=== PATIENT | female | born 1985 | race African-American/Black ===

== ENCOUNTER 2023-03-15 11:32 | Emergency (ER) | payer BC, SELFPAY ==
[2023-03-15 11:43] VITALS: BP 108/67; PULSE 66; RESP 18; TEMP 36.4; O2SAT 95; BMI 25.1
--- NOTE | 2023-03-15 12:16 | ED.GENADULT ---
HPI - General Adult General Date Seen: 03/15/23 Chief complaint: Cough Stated complaint: Cough, loss of taste/smell Time Seen by Provider: 03/15/23 11:42 Source: patient Mode of arrival: ambulatory Limitations: no limitations and altered mental status History of Present Illness HPI narrative: Patient is a 37-year-old generally healthy woman who presents for evaluation of cough and fatigue which has been present for about 4 days. She took a home COVID test which was positive. She is wondering about possible influenza and RSV as well. She does not have chest pain or shortness of breath. She says that she has a history of vaping tobacco but quit on March 08. She does smell like marijuana although she denies smoking marijuana herself. No fevers, vomiting, or other complaints. Related Data Home Medications Medication Instructions Recorded Confirmed aripiprazole 9.75 mg/1.3 mL mg IM 03/15/23 intramuscular solution Previous Rx's Medication Instructions Recorded albuterol sulfate 90 mcg/actuation 2 puff inhalation 6XD PRN 03/15/23 aerosol inhaler shortness of breath or wheezing #6.7 grams prednisone 20 mg tablet 20 mg PO BID #10 tabs 03/15/23 Allergies Allergy/AdvReac Type Severity Reaction Status Date / Time ibuprofen [From Motrin] Allergy Mild itchy and Verified 03/15/23 11:48 swellen throat Review of Systems Status of ROS: Reports: 10 or more systems reviewed and unremarkable except as noted in History and below [facility] Social History Smoking Status: Never smoker How often do you have a drink containing alcohol: never AUDIT-C Alcohol total score: 0 Non-prescribed substance use: denies use Exam Narrative: Exam Narrative: Vital signs as noted above. In general, an alert, well-appearing patient. Head: Normocephalic, atraumatic. Eyes: Pupils are equal reactive. Extraocular movements are full. Conjunctivae are normal. ENT: Mucous membranes are moist. Throat is normal. Neck: Supple without lymphadenopathy. Heart: Regular rate and rhythm. No murmur or rub. Lungs: A few mild scattered wheezes, no crackles, no increased work of breathing. Abdomen: Soft and nontender. No organomegaly. Extremities: Well perfused. No edema. No calf tenderness. Pulses intact. Neurologic: Patient is alert and oriented to person and place. Speech is fluent. Face is symmetric. Moves all extremities equally. Affect: Normal. Skin: Warm and dry. Well perfused. Const: Vital Signs, click to edit/add: Vital Signs - 24 hr 03/15/23 11:43 03/15/23 12:35 Temperature 97.5 F L 97.5 F L Pulse Rate [Right Pulse Oximeter] 66 66 Respiratory Rate 18 18 Blood Pressure [Ri ght Upper Arm] 108/67 108/67 Pulse Oximetry 95 Oxygen Delivery Me thod Room Air Documenting provider has reviewed patient's vital signs: yes Course Course ED Course: Patient was swabbed for RSV, COVID and influenza. She does appear to have some mild bronchospasm and I discussed with her she may benefit from albuterol and little prednisone. Otherwise she is nontoxic in appearance, breathing without difficulty. Discussed that COVID is viral, offered Paxlovid, she declined. Swab ultimately positive only for COVID. Supportive care, return for worsening. Vital Signs Vital signs: Initial Vital Signs Respiratory Effort Normal, Spontaneous, Non-Labored 03/15/23 11:42 Respiratory Depth Normal 03/15/23 11:42 Respiratory Pattern Normal 03/15/23 11:42 Vital Signs Temperature 97.5 F L 03/15/23 11:43 Pulse Rate 66 03/15/23 11:43 Respiratory Rate 18 03/15/23 11:43 Blood Pressure 108/67 03/15/23 11:43 Pulse Oximetry 95 03/15/23 11:43 Oxygen Delivery Method Room Air 03/15/23 11:43 Temperature 97.5 F L 03/15/23 12:35 Pulse Rate 66 03/15/23 12:35 Respiratory Rate 18 03/15/23 12:35 Blood Pressure 108/67 03/15/23 12:35 Pulse Oximetry 95 03/15/23 11:43 Oxygen Delivery Method Room Air 03/15/23 11:43 Medical Decision Making Lab Data Labs: Lab Results 03/15/23 Range/Units 11:49 SARS-CoV-2 (PCR) POSITIVE SARS-CoV-2 A (Negative) Influenza Type A (PCR) Negative PCR FLU A (Negative) Influenza Type B (PCR) Negative PCR FLU B (Negative) RSV (PCR) Negative PCR RSV (Negative) Discharge Plan Discharge Clinical Impression: COVID-19, Bronchitis Patient Disposition: Home, Self-Care Condition: Stable Instructions: Acute Bronchitis (ED), COVID-19 (Coronavirus Disease 2019) (ED) Additional Instructions: Medications as prescribed. We will call you if either of your other tests are positive for influenza/RSV. All of these illnesses are viral and there is no specific treatment. I anticipate you will feel better over the next 7-10 days. Return for worsening respiratory symptoms or other concerns. Prescriptions: New albuterol sulfate 90 mcg/actuation HFA aerosol inhaler 2 puff inhalation 6XD PRN (Reason: shortness of breath or wheezing) Qty: 6.7 0RF prednisone 20 mg tablet 20 mg PO BID Qty: 10 0RF No Action aripiprazole 9.75 mg/1.3 mL solution IM Stand Alone Forms: [email or web address] Info Instructions
[2023-03-15 12:35] VITALS: BP 108/67; PULSE 66; RESP 18; TEMP 36.4
[2023-03-15 12:35] LABS: PCR FLU A Negative PCR FLU A (Negative); PCR FLU B Negative PCR FLU B (Negative); PCR RSV Negative PCR RSV (Negative); SARS PCR* POSITIVE SARS-CoV-2 (Negative)
== END 2023-03-15 12:15 | disposition home or self-care (01) ==
LOC: ED 12:13
PROVIDERS: Emergency Provider Emergency Medicine
DX: U07.1 COVID-19 (principal); J40 Bronchitis, not specified as acute or chronic
CPT/HCPCS: 87631; 99283; 99284

== ENCOUNTER 2024-08-31 13:52 | Emergency (ER) | payer OTHER, SELFPAY ==
--- OUTSIDE RECORDS SUMMARY | 2024-08-31 13:55 | XMS_ITS | Clinical Summary ---
Author Organization [facility] Address [address] [place] [address] Care Team Providers Care Waiter/Waitress Economy Class Name Role Phone Pcp, No Primary Care Provider Unavailabl e Allergies Active Allergy Reactions Criticality Noted Date Comments Hydroxyzine Itching 11/15/2017 Facial swelling and itching Hydroxyzine Pamoate Itching 11/15/2017 Facial swelling and itching Ibuprofen Itching 02/13/2010 Medications Ventolin HFA 90 mcg/actuation inhaler INHALE 2 PUFFS BY MOUTH 6 TIMES PER DAY NEEDED FOR SHORTNESS OF BREATH OR WHEEZING 4 Active metFORMIN (GLUCOPHAGE) 500 mg tabletIndicatio ns:Weight gain due to medication Take 1 Tablet (500 mg) by mouth once daily with a meal. 30 Tablet 1 4 Active cloNIDine HCL (CATAPRES) 0.1 mg tabletIndicatio ns:EUGENIA (generalized anxiety disorder) Take 0.5-1 Tablets (0.05-0.1 mg) by mouth 2 times daily if needed (anxiety or sleep). 30 Tablet 2 4 Active Hospital, Clinic, or Other Facility Administered Medication Ordered Dose Route Frequency Start Date End Date Status ARIPiprazole ER injectable suspension SYRINGE KIT 400 mgIndications:Schizo phrenia, unspecified type (HC) 400 mg IM Q 4 WEEKS (28 DAYS) 11/04/2023 09/06/2024 Active Active Problems Problem Noted Date Diagnosed Date Weight gain due to medication 01/26/2024 Schizophrenia 01/26/2024 EUGENIA (generalized anxiety disorder) 01/26/2024 Depression 01/26/2024 Sleep disturbance 01/26/2024 Hallux valgus of right foot 09/29/2017 Bipolar disorder, current ep isode depressed, mild or moderate severity, unspecified 02/04/2010 Attention deficit hyperactivity disorder (ADHD) 02/04/2010 Generalized anxiety disorder 02/04/2010 Posttraumatic stress disorder 02/04/2010 Immunizations Immunization Administration Dates Next Due Tdap 09/22/2017 Social History Tobacco Use Types Packs/Day Years Used Date Smoking Tobacco: Former Cigarettes Cigars Smokeless Tobacco: Never Tobacco Cessation:Counseling Given: Not Answered Comments:Stopped cigs 03/2021 Alcohol Use Standard Drinks/Week Comments Not Currently 0 (1 standard drink = 0.6 oz pure alcohol) did have a drink past weekend. noted 09/22/2022 PHQ-2 Answer Date Recorded PHQ-2 TOTAL SCORE 1 01/26/2024 Financial Resource Strain Answer Date R ecorded Difficulty of Paying Living Expenses Not on file 03/08/2021 Difficulty of Paying Living Expenses Not on file 03/08/2021 Comments No Sex and Gender Information Value Date Recorded Sex Assigned at Not on file Legal Sex Female 7:23 AM SUPERVISOR POLE YARD Gender Identity Not on file Sexual Orientation Not on file Obstetrics History Last Filed Vital Signs Vital Sign Reading Time Taken Comments Blood Pressure 120/76 03/13/2024 1:58 PM SUPERVISOR POLE YARD Pulse 86 03/13/2024 1:58 PM SUPERVISOR POLE YARD Temperature 36.7 C (98.1 F) 01/23/2021 12:23 PM SUPERVISOR POLE YARD Respiratory Rate 20 01/23/2021 12:23 PM SUPERVISOR POLE YARD Oxygen Saturation 98% 03/13/2024 1:58 PM SUPERVISOR POLE YARD Inhaled Oxygen Concentration - - Weight 90.3 kg (199 lb) 03/13/2024 1:58 PM SUPERVISOR POLE YARD Height 179.1 cm (5' 10.51) 01/23/2021 12:23 PM SUPERVISOR POLE YARD Body Mass Index 28.14 01/23/2021 12:23 PM SUPERVISOR POLE YARD Plan of Treatment Health Maintenance Due Date Last Done Comments HIV for age 15-65 2001 Hepatitis C screening for ag e 18-79 2004 Hepatitis B series for 19+ ( 1 of 3 - 19+ 3-dose series) 2005 Pap test for age 21-65 05/08/2007 BMI (ht and wt on same day) for age 18+ 01/23/2022 01/23/2021, 01/06/2021 COVID-19 vaccine series ( season) 2023 Influenza Vaccine (Season Ended) 2024 Depression screening for age 12+ 01/25/2025 01/26/2024 Tetanus booster 09/23/2027 09/22/2017 Tdap Completed 09/22/2017 Pneumococcal series for age 6-49 Aged Out No longer eligible b ased on patient's age to complete this topic Care Teams Waiter/Waitress Economy Class Relationship Specialty Start Date End Date Pcp, No . PCP - General 06/06/24
--- OUTSIDE RECORDS SUMMARY | 2024-08-31 13:55 | XMS_ITS | Clinical Summary ---
Author Organization [facility] Address [address] [place] [address] Care Team Providers Care Investment Officer Name Role Phone Elizabeth Allen NP Primary Care Provider Allergies Active Allergy Reactions Criticality Noted Date Comments Ibuprofen Itching 04/03/2012 Hydroxyzine Pamoate Itching 11/15/2017 Facial swelling and itching Medications QUEtiapine (SEROQUEL XR) 150 mg oral extended release tablet Take by mouth as needed. prn Active oxyCODONE-aceta minophen (PERCOCET) 5-325 mg oral tablet Take 1-2 tablets by mouth every 6 (six) hours as needed. 40 tablet 8 Active naproxen (NAPROSYN) 500 mg oral tablet Take 1 tablet (500 mg) by mouth twice a day. 20 tablet 3 8 Active Miscellaneous Medical Supply RX: one pair of custom made full length functional orthotics, made of durable functional shell material and durable topcover with deep heel cup and tight arch fill. Place in subtalar joint neutral position. DX: hallux valgus, foot pain, metatarsalgia. 1 each 9 Active Active Problems Problem Noted Date Diagnosed Date Hallux valgus of right foot 09/29/2017 Bunion 09/24/2017 Attention-deficit hyperactivity disorder 010 Bipolar disorder, current ep isode depressed, mild or moderate severity, unspecified 02/04/2010 Generalized anxiety disorder 02/04/2010 Post-traumatic stress disorder 02/04/2010 Immunizations Immunization Administration Dates Next Due Tdap 09/22/2017 Family History Medical History Relation Comments Arthritis Father Heart Disease Father No Known Problems Mother Relation Status Comments Father Mother Social History Tobacco Use Types Packs/Day Years Used Date Smoking Tobacco: Every Day Cigarettes Smokeless Tobacco: Never Tobacco Cessation:Ready to Q uit: No; Counseling Given: Yes Alcohol Use Standard Drinks/Week Comments No 0 (1 standard drink = 0.6 oz pur e alcohol) PHQ-2 Answer Date Recorded PHQ-2 Score 14 01/19/2018 Comments No Sex and Gender Information Value Date Recorded Sex Assigned at Not on file Legal Sex Female 9:45 AM CDT Gender Identity Not on file Sexual Orientation Not on file Last Filed Vital Signs Vital Sign Reading Time Taken Comments Blood Pressure 114/79 12/21/2020 7:30 PM CDT Pulse 55 12/21/2020 7:45 PM CDT Temperature 36.3 C (97.3 F) 12/21/2020 3:43 PM CDT Respiratory Rate 18 12/21/2020 3:43 PM CDT Oxygen Saturation 100% 12/21/2020 7:45 PM CDT Inhaled Oxygen Concentration - - Weight 67.3 kg (148 lb 6.4 oz) 09/29/2017 6:49 A M CDT Height 177.8 cm (5' 10) 09/29/2017 6:49 AM CDT Body Mass Index 21.29 09/29/2017 6:49 AM CDT Plan of Treatment Health Maintenance Due Date Last Done Comments Hepatitis C Screening 1986 Anxiety Follow-Up (EUGENIA-7) 05/08/1987 Depression Assessment (PHQ-2) 05/08/1987 Depression Follow-Up (PHQ-9) 05/08/1987 Pap Smear 09/03/2013 09/03/2010 COVID-19 Vaccine (2023-2 5 season) 2023 Influenza Vaccine (Season Ended) 2024 Adult Tetanus Booster 09/23/2027 09/22/2017 RSV Vaccines (1 - 1-dose 75+ series) 2061 Meningococcal B Vaccine Aged Out No l onger eligible based on patient's age to complete this topic Pneumococcal Vaccine Aged Out No long er eligible based on patient's age to complete this topic Medical Devices Implanted Type Area Weft Straightener Device Identifier Shelf Expiration Date Model / Serial / Lot [id number]/ T2.09/20 202.876 - [id number] Implanted:Qty: 1 on 09/29/2017 by Hunter Amezcua DPM at [facility] Screw/Anc hor Right: Foot Synthes 202.876 / / [id number]/ T2.09/22 202.878 - [id number] Implanted:Qty: 1 on 09/29/2017 by Hunter Amezcua DPM at [facility] Screw/Anc hor Right: Foot Synthes 202.878 / / Procedures Procedure Name Priority Date/Time Associated Diagnosis Comments CYTOLOGY GYNECOLOGICAL Routine 12:09 PM CDT Screening for STDs (sexually transmitted diseases) from Last 3 Months or Most Recently Relevant to Health Maintenance Results * CYTOLOGY GYNECOLOGICAL (09/03/2010 12:09 PM CDT) Pathologist [facility] SHEARER SCREEN MEASURER AND TRIMMER CYTOLOGY Normal [facility] Comment: [facility] [address] [place] [id number] CYTOLOGY REPORT Patient Name: MARY MCCORMACK Specimen No: [id number] Location: [facility] Age: 25 Sex: F Beltran. Date: 09/03/2010 Med. Rec. #: [id number] : 1985 Received: 09/04/2010 Physician(s): Johnie Alcazar MD Reported: 09/05/2010 SOURCE OF SPECIMEN CERVICAL-THIN PREP (HPV REFLEX) Biophysics Professor Diagnostic CLINICAL HISTORY Date of Last Menstrual Period: 08/25/2010 Other: Comment: SCREENING FOR STDS SPECIMEN ADEQUACY Satisfactory for evaluation. Endocervical/transformation zone component present. INTERPRETATION Negative for intraepithelial lesion or malignant cells. Electronically Signed Out [facility] 09/05/2010 CERVIX UTERI STRUCTURE / Unknown 09/03/2010 12:09 PM CDT 09/04/2010 12:09 PM CDT us Johnie Alcazar MD PATHOLOGY/CYTOLOGY ORDER ABLE Final Result [address] [address] from Last 3 Months or Most Recently Relevant to Health Maintenance Care Teams Investment Officer Relationship Specialty Start Date End Date Elizabeth Allen NP [address] [place] [address] PCP - General 09/28/13
--- OUTSIDE RECORDS SUMMARY | 2024-08-31 13:55 | XMS_ITS | Clinical Summary ---
Author Organization [facility] Address [address] [place] [address] Care Team Providers Care Department Head Name Role Phone Unavailable Primary Care Provider Unavailabl e Source Comments You are receiving this document as you are listed as the primary care provider,follow-up provider, or the patient has been referred to you for consultation.This is in compliance with the Medicare andMedicaid EHR Incentive Program,which states Providers who transition their patient to another setting of careor provider of care or refers their patient to another provider of care shouldprovide summary care record for each transition of care or referral. [facility] Allerg[facility] Active Allergy Reactions Criticality Noted Date Comments Hydroxyzine Itching 11/15/2017 Facial swelling and itching Ibuprofen Itching 04/03/2012 Medications ibuprofen (AKA MOTRIN) 600 MG tablet Take 1 Tab by mouth every 6 hours as needed for Pain. 30 Tab 0 0 Active Additional Information Patient not taking.Reported on 02/18/2021 aripiprazole (AKA ABILIFY) 10 MG tablet Take 10 mg by mouth daily. Active sertraline (AKA ZOLOFT) 20 MG/ML concentrated solution Take 25 mg by mouth daily. Active Vit-Fe Fumarate-FA ( PLUS) 27-1 MG tablet Take 1 Tab by mouth daily. 30 Tab 0 1 Active Additional Information Patient not taking.Reported on 02/18/2021 HYDROcodone-acet aminophen (AKA VICODIN,LORTAB) 5-500 MG tablet Take 1-2 Tabs by mouth every 6 hours as needed for Pain. 2 Tab 0 1 Active Additional Information Patient not taking.Reported on 02/18/2021 lidocaine (AKA XYLOCAINE) 2 % jelly Apply topically three times a day. 30 g 0 1 Active Additional Information Patient not taking.Reported on 02/18/2021 methocarbamol (ROBAXIN) 500 MG tablet TAKE 2 TABLETS BY MOUTH EVERY 6 HOURS NEEDED 1 Active QUEtiapine (SEROQUEL XR) 150 MG 24 hour release tablet Take by mouth. Active ABILIFY MAINTENA injection INJECT 400 MG IN THE MUSCLE EVERY 4 WEEKS 1 Active Active Problems No known active problems Social History Tobacco Use Types Packs/Day Years Used Date Smoking Tobacco: Every Day Smokeless Tobacco: Never Comments No Sex and Gender Information Value Date Recorded Sex Assigned at Not on file Legal Sex Female 6:28 AM CDT Gender Identity Not on file Sexual Orientation Not on file Last Filed Vital Signs Vital Sign Reading Time Taken Comments Blood Pressure 121/65 02/18/2021 6:00 PM COMMERCIAL SUBCONTRACTOR Pulse 66 02/18/2021 6:00 PM COMMERCIAL SUBCONTRACTOR Temperature 36.7 C (98 F) 02/18/2021 6:00 PM COMMERCIAL SUBCONTRACTOR Respiratory Rate 19 02/18/2021 6:00 PM COMMERCIAL SUBCONTRACTOR Oxygen Saturation 100% 02/18/2021 6:00 PM COMMERCIAL SUBCONTRACTOR Inhaled Oxygen Concentration - - Weight - - Height - - Body Mass Index - - Plan of Treatment Health Maintenance Due Date Last Done Comments Cervical Cancer Screening Due 1986 Hep C Screening (Preventive Services) 1986 HIV Screening (Preventive Services) 2002 Adult Preventive Visit 2004 HepB Vaccine (1) 2005 Pneumococcal Vaccine (1 of 2 - PCV) 2005 COVID-19 Vaccine (1 - 2023-2 5 season) 2023 Influenza Vaccine (Season Ended) 2024 DTaP/Tdap/Td Vaccine (2 - Tdap) 09/23/2027 8 Zoster/Shingles Vaccine (1 of 2) 2036 HPV Vaccine Aged Out No longer eligi ble based on patient's age to complete this topic HepA Vaccine Aged Out No longer eligi ble based on patient's age to complete this topic Hib Vaccine Aged Out No longer eligi ble based on patient's age to complete this topic IPV (Polio) Vaccine Aged Out No longe r eligible based on patient's age to complete this topic MCV4 Vaccine Aged Out No longer eligi ble based on patient's age to complete this topic Meningococcal B Vaccine Aged Out No l onger eligible based on patient's age to complete this topic
--- OUTSIDE RECORDS SUMMARY | 2024-08-31 13:55 | XMS_ITS | Referral Summary ---
Author Organization [facility] Address [address] [place] [address] Care Team Providers Care Funeral Car Driver Name Role Phone Elizabeth Allen NP Primary [...] 09/29/2017 6:49 AM CDT Plan of Treatment Not on file Medical Devices Implanted Type Area Wreath And Garland Maker Device Identifier Shelf Expiration Date Model / Serial / Lot [id number]/ .6 - [id number] Implanted:Qty: 1 on 09/29/2017 by Hunter Amezcua DPM at [facility] Screw/Anc hor Right: Foot Synthes 202.876 / / [id number]/ .878 - [id number] Implanted:Qty: 1 on 09/29/2017 by Hunter Amezcua DPM at [facility] Screw/Anc hor Right: Foot Synthes 202.878 / / Procedures Procedure Name Priority Date/Time Associated Diagnosis Comments CYTOLOGY GYNECOLOGICAL Routine 12:09 PM CDT Screening for STDs (sexually transmitted diseases) from Last 3 Months or Most Recently Relevant to Health Maintenance Results * CYTOLOGY GYNECOLOGICAL (09/03/2010 12:09 PM CDT) RAW FINISH MILL OPERATOR CYTOLOGY Normal [facility] Comment: [facility] [address] [place] [address] CYTOLOGY REPORT Patient Name: MARY MCCORMACK Specimen No: [id number] Location: [facility] Age: 25 Sex: F Beltran. Date: 09/03/2010 Med. Rec. #: [id number] : 1985 Received: 09/04/2010 Physician(s): Johnie Alcazar MD Reported: 09/05/2010 SOURCE OF SPECIMEN CERVICAL-THIN PREP (HPV REFLEX) Financial Reporting Director Diagnostic CLINICAL HISTORY Date of Last Menstrual Period: 08/25/2010 Other: Comment: SCREENING FOR STDS SPECIMEN ADEQUACY Satisfactory for evaluation. Endocervical/transformation zone component present. INTERPRETATION Negative for intraepithelial lesion or malignant cells. Electronically Signed Out [facility] /[facility] 09/05/2010 CERVIX UTERI STRUCTURE / Unknown 09/03/2010 12:09 PM CDT 09/04/2010 12:09 PM CDT us Johnie Alcazar MD PATHOLOGY/CYTOLOGY ORDER ABLE Final Result [facility] [address] [place] [address] from Last 3 Months or Most Recently Relevant to Health Maintenance Care Teams Funeral Car Driver Relationship Specialty Start Date End Date Elizabeth Allen NP [address] [place] [address] PCP - General 09/28/13
[2024-08-31 14:09] VITALS: BP 115/69; PULSE 75; RESP 16; TEMP 36.4; O2SAT 99; BMI 24.0
[2024-08-31 14:28] VITALS: BP 119/81; PULSE 77; RESP 20; O2SAT 97
--- NOTE | 2024-08-31 14:57 | CRLHL7_ITS ---
For Patients: As a result of the Cures Act, medical imaging exams and procedure reports are released immediately into your electronic medical record. You may view this report before your referring provider. If you have questions, please contact your health care provider. INDICATION: Cough, fever, myalgias TECHNIQUE: Chest radiograph 2 views COMPARISON: None FINDINGS: Mediastinum: The mediastinum is normal in appearance. The heart silhouette is normal in size and morphology. Lung: Both lungs are unremarkable in appearance. No sign of pleural effusion seen. No pneumothorax is identified. Bone and Soft tissue: Unremarkable for age. IMPRESSION: 1. No acute cardiopulmonary disease is seen. Dictated by: Nik Herrera MD @ 08/31/2024 15:26:47 (Electronically Signed)
[2024-08-31] MEDS: ACETAMINOPHEN 500 MG TABLET 1000 MG PO (15:05)
[2024-08-31] MEDS: OXYMETAZOLINE 0.05% NASAL SPRAY 1 SPRAY NOSTRIL-B (15:06)
[2024-08-31] MEDS: BENZONATATE 100 MG CAPSULE PO (15:06)
--- NOTE | 2024-08-31 15:09 | ED.GENADULT ---
HPI - General Adult General Date Seen: 08/31/24 Chief complaint: Cough Stated complaint: not feeling well Time Seen by Provider: 08/31/24 14:29 History of Present Illness HPI narrative: 39-year-old female presenting to the ER today with concern for cough, nasal congestion, body aches, back ache, and fever and chills. Also she has concern for depression and feeling very down depressed. First chief complaint is her illness. She 1st became sick about 2 and half days ago on Wednesday evening with mild nasal congestion. Since then she has developed a cough that is nonproductive but fairly bothersome for her and keeping her up at night. She has also developed mild sore throat. No fever measured but has felt chilled and feverish. She has had body aches and leg pain as well as back ache. Cough is nonproductive. She is not really short of breath. No anterior chest pain. No nausea vomiting or diarrhea. She says she generally stays at home alone and does not know how she would gotten sick. She has had COVID 3 times in the past but does not think this is COVID and declines COVID or influenza PCR testing. She is nonsmoker. She has no history of asthma or lung disease. Her 2nd concern is depression. She has apparently a long history of depression. She apparently has a lot of difficulty remembering to take daily pills so had been managing her depression with monthly injections of an antidepressant. She has a psychiatrist or mental health provider through the [facility] system. She says that she just decided to stop taking them a refill until about 6 months ago in March. She has been feeling increasingly depressed and hopeless and alone for the past few months and getting worse lately. She has multiple stressors. In particular her 20-year-old son is incarcerated and she is very depressed about that. She says other people just 10 to ignore her and take her for granted. She says she always try to help other people in [place] time helping them but then they never help her when she is sick. She is not suicidal. She says that most morning when she wakes up she says she just which she did not wake up. She just feeling more depressed lately and she has been staying at home because she just does not have the energy to go up. Per review of her record from [facility] she has a past medical history all info lower lobe, ADHD, generalized anxiety disorder, PTSD, schizophrenia, depression. Current medication list includes clonidine tablets, metformin, Ventolin inhaler and aripiprazole injectable suspension Most recent visit with her mental health provider was 04/05/2024, Gayla Radhalashell. Related Data Home Medications ?Medication ?Instructions ?Recorded ?Confirmed aripiprazole 9.75 mg/1.3 mL mg IM 03/15/23 intramuscular solution Previous Rx's ?Medication ?Instructions ?Recorded albuterol sulfate 90 mcg/actuation 2 puff inhalation 6XD PRN 03/15/23 aerosol inhaler shortness of breath or wheezing #6.7 grams benzonatate 100 mg capsule 100 mg PO TID PRN cough #14 caps 08/31/24 oxymetazoline 0.05 % nasal mist 2 spray intranasal Q12H PRN nasal 08/31/24 (Afrin (oxymetazoline)) congestion 3 days #15 mL Allergies Allergy/AdvReac Type Severity Reaction Status Date / Time ibuprofen (From Motrin) Allergy Mild itchy and Verified 03/15/23 11:48 swellen throat PFSH PFS Social History Smoking Status: Never smoker Do you use any of these nicotine containing products: None How often do you have a drink containing alcohol: 2-4 times a month How many standard drinks containing alcohol do you have on a typical day: 1 or 2 How often do you have six or more drinks on one occasion: Never AUDIT-C Alcohol total score: 2 Non-prescribed substance use: denies use service: No Exam Narrative: Exam Narrative: Constitutional: Appears well-developed and well-nourished. Alert. Conversant. Non toxic. HENT: Head: Atraumatic. Nose: Nonpurulent bilateral rhinorrhea. Otherwise Nose normal. Mouth/Throat: Oral mucosa is clear and moist. no trismus. Pharynx normal. Tonsils symmetric. No tonsillar enlargement, erythema, or exudate. Right ear: Canal occluded by cerumen. Removed partially with a lighted ear curette. I was able to remove enough of the cerumen that I was able to see about 1/3 of the posterior TM it does look quite and normal. No bleeding. Further efforts to remove cerumen were discontinued because of discomfort for the patient. She will do outpatient ear drops get the rest of her wax out.: Mastoid and pinna normal. Left ear: Mastoid, pinna, canal, TM are normal Eyes: Conjunctivae normal. EOM normal. Pupils equal, round, and reactive to light. No scleral icterus. Neck: Normal range of motion. Neck supple. No tracheal deviation present. Cardiovascular: Normal rate, regular rhythm. No gallop. No friction rub. No murmur heard. Symmetric radial artery pulses Pulmonary/Chest: Effort normal. No stridor. No respiratory distress. No wheezes. No rales. No rhonchi . No tenderness. Abdominal: Soft. No distension. No mass. No tenderness. No rebound. No guarding. Musculoskeletal: RUE: Normal range of motion. No tenderness. No deformity LUE: Normal range of motion. No tenderness. No deformity RLE: Normal range of motion. No edema. No tenderness. No deformity LLE: Normal range of motion. No edema. No tenderness. No deformity Lymph: No cervical adenopathy. Neurological: Alert and oriented to person, place, and time. Normal strength. CN II-VII intact. No sensory deficit. GCS eye subscore is 4. GCS verbal subscore is 5. GCS motor subscore is 6. Normal coordination Skin: Skin is warm and dry. No rash noted. No pallor. Normal capillary refill. Psychiatric: Depressed mood, endorses depression, social isolation. She feels like no one cares about her know once helping her while she is sick. Has a history depression and normally is on injectable medications but stopped taking them about 6 months ago because she says that the injections caused pain. She says she has never had success with oral medications because she can not remember to take the med every day. She has a mental health professional through the [facility] but has not seen them in a couple months. Lately she has been feeling increasingly depressed. When she wakes up in the morning she says she just does not have the energy to go through the day and sometimes she wishes that she would wake up. She is not thinking about harming herself and does not want to commit suicide. She just feels like maybe she would be better off if she did wake up. Const: Vital Signs, click to edit/add: Vital Signs - 24 hr 08/31/24 14:09 08/31/24 14:28 Temperature 97.6 F Pulse Rate [Pulse Oximeter] 75 77 Respiratory Rate 16 20 Blood Pressure [Ri ght Upper Arm] 115/69 119/81 Pulse Oximetry 99 97 Oxygen Delivery Me thod Room Air Room Air Course Vital Signs Vital signs: Initial Vital Signs Temperature 97.6 F 08/31/24 14:09 Temperature Source Temporal Artery Scan 08/31/24 14:09 Pulse Rate 75 08/31/24 14:09 Respiratory Rate 16 08/31/24 14:09 Blood Pressure 115/69 08/31/24 14:09 Blood Pressure Mean 84 08/31/24 14:09 Blood Pressure Position Sitting 08/31/24 14:09 Pulse Oximetry 99 08/31/24 14:09 Oxygen Delivery Method Room Air 08/31/24 14:09 Vital Signs Temperature 97.6 F 08/31/24 14:09 Pulse Rate 75 08/31/24 14:09 Respiratory Rate 16 08/31/24 14:09 Blood Pressure 115/69 08/31/24 14:09 Pulse Oximetry 99 08/31/24 14:09 Oxygen Delivery Method Room Air 08/31/24 14:09 Temperature 97.6 F 08/31/24 14:09 Pulse Rate 77 08/31/24 14:28 Respiratory Rate 20 08/31/24 14:28 Blood Pressure 119/81 08/31/24 14:28 Pulse Oximetry 97 08/31/24 14:28 Oxygen Delivery Method Room Air 08/31/24 14:28 Medications Administered Medications: Generic Name Dose Route Start Last Admin Trade Name Freq PRN Reason Stop Dose Admin Oxymetazoline HCl 1 spray 08/31/24 14:58 08/31/24 15:06 Oxymetazoline 0.05% Nasal Archer NOSTRIL-B 1 spray BID PRN Administration Discontinued Medications Generic Name Dose Route Start Last Admin Trade Name Freq PRN Reason Stop Dose Admin Acetaminophen 1,000 mg 08/31/24 14:58 08/31/24 15:05 Acetaminophen 500 Mg Tablet PO 08/31/24 14:59 1,000 mg ONCE ONE Administration Benzonatate 100 mg 08/31/24 14:58 08/31/24 15:06 Benzonatate 100 Mg Capsule PO 08/31/24 14:59 100 mg ONCE ONE Administration Medical Decision Making MDM Narrative Medical decision making narrative: This patient presents for evaluation of 2 and half days of cough, nasal congestion, body aches, fever and chills This is consistent with an upper respiratory tract infection. Viral testing declined by the patient. There is no signs at this point of serious bacterial infection such as OM, RPA, epiglottitis, [employer], strep pharyngitis, pneumonia, sinusitis, meningitis, bacteremia, serious bacterial infection. Lungs are clear but given the patient's complaints and underlying mental problems we did obtain chest x-ray which is fortunately negative for pneumonia. There are no gastrointestinal symptoms at this point and no signs of dehydration. Close followup with primary care physician is indicated. Return to ED for fever > 103, protracted vomiting, confusion, or other worsening. Will treat supportively with decongestants, cough medicine. She can use Tylenol if needed for fever and chills at home. Patient also made significant planes about mental health and feeling hopelessness and not wanting to wake up in the morning. The time she was tearful here in the ER. It turns out she has a history of bipolar and depression and had been on injectable Abilify but stopped taking it about 6 months ago. She is not suicidal, homicidal. She actually started to feel little bit better and cry less after having an opportunity to talk about her feelings with myself and then with her nurses. She was evaluated by telehealth [facility]. They feel that she is safe for outpatient management. I would recommend that she follow-up with her doctors Enrike and reinitiate treatment with her previous meds. Imaging Data Chest x-ray: Attestation: I have reviewed the pertinent imaging results. Radiologist's impression: IMPRESSION: 1. No acute cardiopulmonary disease is seen. Discharge Plan Discharge Clinical Impression: URI (upper respiratory infection), Depression Patient Disposition: Home, Self-Care Condition: Stable Instructions: Depression (ED), Upper Respiratory Infection (DC), Viral Syndrome (ED) Additional Instructions: As we discussed, please follow-up with her doctors Enrike within the next 1-2 days to discuss her depression and restarted on her medications. If you have worsening depression or thoughts of self-harm or suicide please return to the ER right away. For your cold symptoms you can use Tylenol if needed for fever. Use the cough medication (Tessalon) as needed for cough. Use the nasal spray twice daily as needed for the nasal congestion. Drink plenty of fluids and stay hydrated. Prescriptions: New Afrin (oxymetazoline) 0.05 % mist 2 spray intranasal Q12H PRN (Reason: nasal congestion) 3 Days Qty: 15 0RF benzonatate 100 mg capsule 100 mg PO TID PRN (Reason: cough) Qty: 14 0RF No Action aripiprazole 9.75 mg/1.3 mL solution IM albuterol sulfate 90 mcg/actuation HFA aerosol inhaler 2 puff inhalation 6XD PRN (Reason: shortness of breath or wheezing) Qty: 6.7 0RF Follow Up/Referrals: Provider,Not a Local [Primary Care Provider, Family Practice] Stand Alone Forms: [facility] Info Instructions
== END 2024-08-31 16:30 | disposition home or self-care (01) ==
PROVIDERS: Emergency Provider Emergency Medicine
DX: J06.9 Acute upper respiratory infection, unspecified (principal); R05.9 Cough, unspecified; R50.9 Fever, unspecified; J02.9 Acute pharyngitis, unspecified; F32.A Depression, unspecified
CPT/HCPCS: 71046; 99283; Q3014; A9270